=== PATIENT | male | born 2000 | race Caucasian/White ===

== ENCOUNTER → 2024-03-07 10:06 | Outpatient (REF) | payer BC, SELFPAY ==
[2024-03-07 11:58] LABS: % Basophils 0.5 % (0-2); % Eosinophils 2.8 % (0-6); % Immature Granulocytes 0.4 % (0-0.5); % Lymphocytes 24.2 % (20.5-51.1); % Monocytes 7.1 % (1.7-9.3); Absolute Eosinophils 0.2 10^3/uL (0-0.7); Absolute Lymphocytes 1.9 10^3/uL (1.2-3.4); Absolute Monocytes 0.6 10^3/uL (0.1-0.6); Hematocrit 45.1 % (39.0-52.0); Hemoglobin 15.4 g/dL (13.0-18.0); Mean Corp Hgb Conc. 34.1 g/dL (33.0-37.0); Mean Corpuscular Hgb 28.2 pg (27.0-31.0); Mean Corpuscular Volume 82.4 fL (80.0-94.0); Mean Platelet Volume 9.7 fL (7.4-10.4); Nucleated Red Blood Cells % 0 % (-); Platelet Count 346 10^3/uL (130-400); Red Blood Cell Count 5.47 10^6/uL (4.70-6.10); Red Cell Dist. Width 12.3 % (11.5-14.5); White Blood Cell Count 7.7 10^3/uL (4.8-10.8)
[2024-03-07 13:33] LABS: ALT (SGPT) 42 U/L (0-50); AST (SGOT) 31 U/L (17-59); Albumin 4.5 g/dl (3.5-5.0); Alkaline Phosphatase 65 U/L (38-126); Blood Urea Nitrogen 20 mg/dl (9-20); Carbon Dioxide 29 mmol/L (22-30); Chloride 101 mmol/L (98-107); Glucose 86 mg/dl (70-99); HDL Cholesterol 39 mg/dl; LDL Cholesterol, Calculated 118 mg/dl; Sodium 142 mmol/L (135-145); Total Bilirubin 0.7 mg/dl (0.2-1.3); Total Cholesterol 189 mg/dl (50-199); Total Protein 7.5 g/dl (6.3-8.2); Triglyceride 163 mg/dl (10-149); Very Low Density Lipoprotein 32 mg/dl (0-30); eGFR > 60.00
[2024-03-07 13:38] LABS: TSH 1.91 uIU/ml (0.47-4.68)
[2024-03-08 20:32] LABS: Hepatitis B Surface Antigen Negative (Negative)
[2024-03-08 20:38] LABS: Hepatitis B Core Ab, IgM Negative (Negative)
[2024-03-08 20:49] LABS: Hepatitis C Antibody Negative (Negative)
[2024-03-08 20:50] LABS: Hepatitis B Surface Antibody Negative
[2024-03-09 14:02] LABS: HIV Combo Negative (Negative)
[2024-03-09 14:11] LABS: Syphilis/T. pallidum Ab Reflex Negative (Negative)
== END ==
LOC: REG 10:06
PROVIDERS: ATTENDING PHYSICIAN Family Medicine
DX: E78.2 Mixed hyperlipidemia (principal); Z11.3 Encounter for screening for infections with a predominantly sexual mode of transmission
CPT/HCPCS: 36415; 80053; 80061; 84443; 85025; 86705; 86706; 86780; 86803; 87340; 87389; 87491; 87591